=== PATIENT | male | born 1960 | race Caucasian/White ===

== ENCOUNTER 2023-11-26 08:34 | Outpatient (CLI) | payer OTHER, SELFPAY ==
--- NOTE | ~2023-11-26 | MR_ITS ---
MRI of the left knee Clinical history: Pain Technique: Coronal proton density and proton density-weighted images, sagittal proton-density and T2 fat-sat images, and axial proton-density fat-saturated images were acquired. Findings: Anterior and posterior cruciate ligaments are intact. Medial collateral ligament and the la teral collateral ligament complex are intact. Popliteus tendon is intact. Lateral meniscus is intact, without evidence of tear. There is large probable radial tear or other co mplex tear involving the body segment of the medial meniscus, which is markedly diminutive. 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 There is diffuse moderate chondromalacia the femoral trochlea, with shallow femoral trochlear groove. There is mild chondral thinning in the medial lateral compartm ent. Tricompartmental small osteophytes are present. There is extensive heterotopic ossification along the course of the patellar tendon. Distal quadricep s tendon is intact. Minimal joint effusion present. Minimal Juares's cyst present. Impression: Large radial tear versus complex tearing of the body segment of the medial meniscus. Moderate to advanced patellofemoral compartment degenerative change. Mild to moderate degenerative ch magdiel of the medial and lateral compartments. Extensive heterotopic ossification along the course of the patellar tendon, just inferior to the uriostegui llar pole, and at extending superiorly from the tibial tubercle. Correlate for history of trauma or p rior intervention in this region. Reviewed, dictated and finalized at [facility]. Impression: Large radial tear versus complex tearing of the body segment of the medial meni scus. Moderate to advanced patellofemoral compartment degenerative change. Mild to mo derate degenerative change of the medial and lateral compartments. Extensive heterotopic ossification along the course of the patellar tendon, jus t inferior to the patellar pole, and at extending superiorly from the tibial tu bercle. Correlate for history of trauma or prior intervention in this region.
== END 2023-11-26 08:35 ==
PROVIDERS: PCP Internal Medicine Geriatric Medicine; Visit Provider Orthopaedic Surgery
DX: M17.12 Unilateral primary osteoarthritis, left knee (principal)
CPT/HCPCS: 73721